=== PATIENT | female | born 1960 | race Two or more races ===

== ENCOUNTER 2020-10-10 15:50 | Outpatient (REF) | payer MEDICAID, SELFPAY ==
--- NOTE | ~2020-10-10 | MM_ITS ---
EXAMINATION: MM SCREENING DIGITAL BREAST TOMOSYNTHESIS, BILATERAL CLINICAL INFORMATION: Screening. Asymptomatic. The lifetime risk of breast cancer based on the Tyrer-Cuzick Model is 3%. COMPARISON: Mammography: 05/21/2019, 05/07/2019, 04/18/2018, 03/08/2017 TECHNIQUE: Digital breast tomosynthesis is performed in both the craniocaudal and mediolateral oblique views along with computer-aided detection (CAD). Synthesized 2D images are generated from the tomosynthesis. FINDINGS: There are scattered areas of fibroglandular density (ACR BI-RADS breast composition Category b). There are no significant masses, abnormal calcifications, or other abnormalities. Parenchymal pattern is similar to prior studies. No developing density. The axilla and skin contours are unremarkable. MM/MM tomosynthesis screening BI IMPRESSION: No mammographic evidence of malignancy. ASSESSMENT: BI-RADS 1: Negative RECOMMENDATION: Routine annual mammography screening. This patient's information was entered into a reminder system with a target due date for their next mammogram.
== END 2020-10-10 15:51 | disposition home or self-care (01) ==
LOC: HO.MAMMO 15:50
PROVIDERS: Visit Provider Family Medicine
DX: Z12.31 Encounter for screening mammogram for malignant neoplasm of breast (principal)
CPT/HCPCS: 77063; 77067

== ENCOUNTER 2021-10-14 09:53 | Outpatient (REF) | payer MEDICAID, SELFPAY ==
--- NOTE | ~2021-10-14 | MM_ITS ---
EXAMINATION: MM SCREENING DIGITAL BREAST TOMOSYNTHESIS, BILATERAL CLINICAL INFORMATION: Screening. Asymptomatic. The lifetime risk of breast cancer based on the Tyrer-Cuzick Model is 6%. COMPARISON: Mammography: 10/10/2020, 05/21/2019, 05/07/2019, 04/18/2018 TECHNIQUE: Digital breast tomosynthesis is performed in both the craniocaudal and mediolateral oblique views along with computer-aided detection (CAD). Synthesized 2D images are generated from the tomosynthesis. FINDINGS: There are scattered areas of fibroglandular density (ACR BI-RADS breast composition Category b). There are scattered bilateral parenchymal asymmetries similar to prior studies. No developing density or interval architectural abnormality. No abnormal calcifications. The axilla and skin contours are unremarkable. No significant changes from prior studies. MM/MM tomosynthesis screening BI IMPRESSION: No mammographic evidence of malignancy. ASSESSMENT: BI-RADS 2: Benign RECOMMENDATION: Routine annual mammography screening. This patient's information was entered into a reminder system with a target due date for their next mammogram.
== END 2021-10-14 09:54 | disposition home or self-care (01) ==
LOC: HO.MAMMO 09:53
PROVIDERS: PCP Family Medicine; Visit Provider Family Medicine
DX: Z12.31 Encounter for screening mammogram for malignant neoplasm of breast (principal)
CPT/HCPCS: 77063; 77067

== ENCOUNTER 2022-10-28 10:04 | Outpatient (REF) | payer MEDICAID, SELFPAY ==
--- NOTE | ~2022-10-28 | MM_ITS ---
EXAMINATION: MM SCREENING DIGITAL BREAST TOMOSYNTHESIS, BILATERAL CLINICAL INFORMATION: Screening. Asymptomatic. The lifetime risk of breast cancer based on the Tyrer-Cuzick Model is 4%. COMPARISON: Mammography: 10/14/2021, 10/10/2020, 05/21/2019, 05/07/2019 TECHNIQUE: Digital breast tomosynthesis is performed in both the craniocaudal and mediolateral oblique views along with computer-aided detection (CAD). Synthesized 2D images are generated from the tomosynthesis. FINDINGS: There are scattered areas of fibroglandular density (ACR BI-RADS breast composition Category b). There are no significant masses, abnormal calcifications, or other abnormalities. There are scattered stable minor bilateral asymmetries. No developing density or architectural abnormality or significant changes from prior exams. The axilla and skin contours are unremarkable. MM/MM tomosynthesis screening BI IMPRESSION: No mammographic evidence of malignancy. ASSESSMENT: BI-RADS 2: Benign RECOMMENDATION: Routine annual mammography screening. This patient's information was entered into a reminder system with a target due date for their next mammogram.
== END 2022-10-28 10:05 | disposition home or self-care (01) ==
LOC: HO.MAMMO 10:04
PROVIDERS: Visit Provider Family Medicine
DX: Z12.31 Encounter for screening mammogram for malignant neoplasm of breast (principal)
CPT/HCPCS: 77063; 77067

== ENCOUNTER 2023-02-16 08:52 | Outpatient (REF) | payer MEDICAID, SELFPAY ==
[2023-02-16 14:48] LABS: Alanine Aminotransferase 9 U/L (0-31); Albumin Level 4.2 g/dL (3.5-5.0); Alkaline Phosphatase 79 U/L (39-117); Anion Gap 13 (12-20); Aspartate Amino Transferase 16 U/L (5-31); Bilirubin Total 0.4 mg/dL (0.0-1.0); Blood Urea Nitrogen 16 mg/dL (9-16); Calcium 9.4 mg/dL (8.4-10.2); Carbon Dioxide 24 mmol/L (22-29); Chloride 106 mmol/L (96-108); Cholesterol 216 mg/dL (<200); Estimated Glomerular Filt Rate > 60; Glucose Fasting 80 mg/dL (60-99); HDL Cholesterol 57 mg/dL (>40); LDL Cholesterol Calculated 142 mg/dL (<100); Potassium 3.8 mmol/L (3.3-5.1); Sodium 139 mmol/L (135-145); Total Protein 7.3 g/dL (6.5-8.0); Triglycerides 88 mg/dL (<150)
[2023-02-16 15:05] LABS: TSH reflex Free T4 2.95 uIU/mL (0.32-4.0)
[2023-02-17 08:36] LABS: HIV AB/AG Nonreactive (Nonreactive); HIV Num 1 0.05 S/CO (0.00-0.99); ~HepC Num1 0.06 S/CO (0.00-0.79); ~Hepatitis C Antibody Nonreactive (Nonreactive)
== END 2023-02-16 08:53 | disposition home or self-care (01) ==
LOC: HO.CHCLDS 08:52
PROVIDERS: Visit Provider Family Medicine
DX: Z13.9 Encounter for screening, unspecified (principal)
CPT/HCPCS: 36415; 80053; 80061; 84443; 86803; 87389

== ENCOUNTER 2023-08-19 10:49 | Outpatient (REF) | payer MEDICAID, SELFPAY ==
--- NOTE | ~2023-08-19 | XR_ITS ---
EXAMINATION: XR KNEE, RIGHT CLINICAL INFORMATION: Chronic pain right knee COMPARISON: None available. TECHNIQUE: 3 views of the right knee. FINDINGS: No fracture or joint effusion. Alignment is anatomic. Joint spaces are maintained. No abnormal soft tissue calcification. XR/XR knee RT 3V IMPRESSION: Normal right knee.
--- NOTE | ~2023-08-19 | XR_ITS ---
EXAMINATION: XR HAND, LEFT CLINICAL INFORMATION: Chronic hand pain COMPARISON: None available. TECHNIQUE: PA, lateral, and oblique views of the left hand. FINDINGS: Interphalangeal joints: Mild osteoarthritis of the second DIP joint manifested by small marginal osteophytes without joint space narrowing. Fifth DIP joint: Mild to moderate osteoarthritis manifested by nonuniform joint space narrowing and marginal osteophytes. The remaining bones joints and soft tissues are normal. No marginal erosions or abnormal soft tissue calcifications. XR/XR hand LT min 3V IMPRESSION: 1. 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 2. Mild osteoarthritis of the second DIP joint.
== END 2023-08-19 10:50 | disposition home or self-care (01) ==
LOC: HO.XRAY 10:49
PROVIDERS: PCP Family Medicine; Visit Provider Family Medicine
DX: M79.642 Pain in left hand (principal); M25.561 Pain in right knee; G89.29 Other chronic pain
CPT/HCPCS: 73130; 73562

== ENCOUNTER 2023-11-03 09:52 | Outpatient (REF) | payer MEDICAID, SELFPAY | END 2023-11-03 09:53 | disposition home or self-care (01) | LOC: HO.MAMMO 09:52 | PROVIDERS: PCP Family Medicine; Visit Provider Family Medicine | DX: Z12.31 Encounter for screening mammogram for malignant neoplasm of breast (principal) | CPT/HCPCS: 77063; 77067 ==

== ENCOUNTER → 2023-11-03 11:00 | Outpatient (BNV) | payer MEDICAID, SELFPAY | PROVIDERS: PCP Family Medicine; Visit Provider Radiology Diagnostic Radiology | DX: Z12.31 Encounter for screening mammogram for malignant neoplasm of breast (principal) | CPT/HCPCS: 77063; 77067 ==

== ENCOUNTER 2024-03-22 10:08 | Outpatient (REF) | payer MEDICAID, SELFPAY ==
[2024-03-22 11:21] LABS: MANUAL DIFF FLAG NO
[2024-03-22 11:32] LABS: Basophils Absolute Auto 0.1 X10*3/uL (0.0-0.2); Basophils Percent Auto 1.2 % (0-2); Eosinophils Absolute Auto 0.3 X10*3/uL (0.0-0.4); Eosinophils Percent Auto 6.8 % (0-4); Hematocrit 38.4 % (37.0-47.0); Hemoglobin 12.7 g/dl (12.0-16.0); Imm Gran Abs Auto 0.01 X10*3/uL (0.00-0.03); Imm Gran Pct Auto 0.2 % (0.0-0.4); Lymphocytes Absolute Auto 1.3 X10*3/uL (1.2-4.9); Lymphocytes Percent Auto 29.3 % (20-40); Mean Corpuscular HGB Conc 33.1 g/dl (31.0-35.0); Mean Corpuscular Hemoglobin 31.1 pg (27.0-33.0); Mean Corpuscular Volume 93.9 fL (80.0-98.0); Mean Platelet Volume 12.3 fL (9.4-12.3); Monocytes Absolute Auto 0.4 X10*3/uL (0.1-1.2); Monocytes Percent Auto 8.9 % (2-11); Neutrophils Absolute Auto 2.3 x10*3/uL (2.0-8.3); Neutrophils Percent Auto 53.6 % (45-73); Platelet Count 170 X10*3/uL (160-400); Red Blood Count 4.09 X10*6/uL (4.20-5.50); White Blood Count 4.3 X10*3/uL (4.8-10.8)
[2024-03-22 11:52] LABS: Alanine Aminotransferase 17 U/L (0-31); Alkaline Phosphatase 79 U/L (39-117); Anion Gap 11 (12-20); Aspartate Amino Transferase 25 U/L (5-31); Bilirubin Total 0.2 mg/dL (0.0-1.0); Blood Urea Nitrogen 17 mg/dL (9-16); Calcium 9.3 mg/dL (8.4-10.2); Carbon Dioxide 25 mmol/L (22-29); Chloride 109 mmol/L (96-108); Cholesterol 196 mg/dL (<200); Estimated Glomerular Filt Rate > 60; Glucose Random 97 mg/dL (60-115); HDL Cholesterol 56 mg/dL (>40); LDL Cholesterol Calculated 130 mg/dL (<100); Potassium 4.1 mmol/L (3.3-5.1); Sodium 141 mmol/L (135-145); Triglycerides 54 mg/dL (<150)
== END 2024-03-22 10:09 | disposition home or self-care (01) ==
LOC: HO.HHCL 10:08
PROVIDERS: Visit Provider Family Medicine
DX: Z00.00 Encounter for general adult medical examination without abnormal findings (principal)
CPT/HCPCS: 36415; 80053; 80061; 85025

== ENCOUNTER 2024-11-08 10:30 | Outpatient (REF) | payer MEDICAID, SELFPAY ==
--- OUTSIDE RECORDS SUMMARY | 2024-11-08 12:18 | XMS_ITS | Encounter Summary ---
Author Organization [employer] Address [address] [place] [address] Care Team Providers Care Builder Operator Name Role Phone Jolly Randolph MD Primary Care Provider [phone] Reason for Visit * Reason Onset Date Comments Appointment Request 04/16/2024 Encounter Details Date Type Department Care Team ([facility] st Contact Info) Description 04/16/2024 Telephone [facility] CH[facility] MED & PEDS [address] [place] [address] Jolly Randolph MD [address] [place] [address] Appointment Request Social History Tobacco Use Types Packs/Day Years Used Date Smoking Tobacco: Never Passive Smoke Exposure: Never Smokeless Tobacco: Never Alcohol Use Standard Drinks/Week Comments Never 0 (1 standard drink = 0.6 oz pur e alcohol) Alcohol Answer Date Recorded Frequency of Alcohol Consumption Not on file 03/19/2024 Average Number of Drinks Not on file 024 Frequency of Binge Drinking Not on file 08/2023 Score 0 03/19/2024 Depression Answer Date Recorded Patient Health Questionnaire-9 Score 0 03/19/2024 Patient Health Questionnaire-9 Score 0 03/19/2024 Last PHQ-9: Questionnaire Data Not on file 1 05/19/2023 Housing Stability Answer Date Recorded What is your housing situation today? I have nola platt 02/28/[address] you li ve. Do you have problems with any of the following? None of the above 02/28/2023 Food Insecurity Answer Date Recorded Within the past 12 months, y ou worried that your food would run out before you got money to buy more: Never True 02/28/2023 Within the past 12 months,th e food you bought just didn't last and you didn't have enough money to get more: Never True Transportation Answer Date Recorded In the past 12 months, has l ack of transportation kept you from medical appts, meetings, work or from getting things needed for daily living? No 02/28/2023 Utilities Answer Date Recorded In the past 12 months, has t he electric, gas, oil or water company threatened to shut off services in your home? No 02/28/2023 Depression Answer Date Recorded Patient Health Questionnaire-2 Score 0 03/19/2024 Comments No Sex and Gender Information Value Date Recorded Sex Assigned at Female 03/15/2022 10:19 AM EDT Legal Sex Female 10:19 AM EDT Gender Identity Female 03/15/2022 10:19 AM EDT Sexual Orientation Straight 02/01/2023 12 :27 PM EDT documented as of this encounter Miscellaneous Notes * Telephone Encounter - Muna Bryant - 04/16/2024 2:11 PM EST Tc from pt requesting to r/s derm appt 04/17/24. States does not feel Comfortable being seen by a male doctor and would like to switch over to a female does not mind either location . If any questions you can't contact pt at [phone] documented in this encounter Plan of Treatment Not on file documented as of this encounter Visit Diagnoses Not on filedocumented in this encounter Additional Health Concerns Assessment Noted Time PHQ-9 Depression Total Score: 0 03/19/20 10:21 AM EST documented as of this encounter Care Teams Builder Operator Relationship Specialty Start Date End Date Jolly Randolph MD [address] [place] [address] PCP - General Family Medicine 02/15/23 documented as of this encounter
== END 2024-11-08 10:31 | disposition home or self-care (01) ==
LOC: HO.MAMMO 10:30
PROVIDERS: PCP Family Medicine; Visit Provider Family Medicine
DX: Z12.31 Encounter for screening mammogram for malignant neoplasm of breast (principal)
CPT/HCPCS: 77063; 77067

== ENCOUNTER → 2024-11-08 10:45 | Outpatient (BNV) | payer MEDICAID, SELFPAY | PROVIDERS: PCP Family Medicine; Visit Provider Internal Medicine | DX: Z12.31 Encounter for screening mammogram for malignant neoplasm of breast (principal) | CPT/HCPCS: 77063; 77067 ==

== ENCOUNTER 2025-03-15 11:09 | Outpatient (AMB) | payer MEDICAID, SELFPAY ==
--- NOTE | 2025-03-15 11:18 | AM.OFFWIN_ITS ---
Intake Vital Signs 03/15/25 11:21 Height 5 ft 2.8 in Weight 115 lb BMI 20.5 BP 136/74 Blood Pressure Location Lt brachial Position Sitting Pulse 71 Pulse Source Pulse Oximeter Temp 97.7 F Temp Source Oral Pulse Oximetry (%) 98 Oxygen Delivery Method Room Air Intake Visit Reasons: SUPERVISOR PROPERTIES-uti Allergies aspirin Adverse Reaction (Intermediate, Verified 03/15/25 11:28) Eye Swelling ibuprofen (From [facility]VIL) Adverse Reaction (Intermediate, Verified 03/15/25 11:28) Eye Swelling Do you need a note to return to daycare/school/sports/work: No HPI HPI Comments History of Present Illness Details History - The patient is a 65-year-old female pr esenting with symptoms suggestive of a urinary tract infection. - The patient reported noticing reddish discoloration in her urine starting the day before the visit, suspecting an infection. - She denied experiencing dysuria, abdom inal pain, back pain, fever, increased urinary frequency, or urinary retention. - Urinalysis indicated the presence of b lood and a small amount of white blood cells, but no history of kidney stones was reported. Review of Systems - Genitourinary: Reports hematuria. Ashok es dysuria, abdominal pain, back pain, fever, increased urinary frequency, or urinary retention. All systems reviewed and are unremarkable except as noted in HPI Physical Exam General: Cooperative, healthy appearing, comfortable, no acute distress and well developed Orientation: Patient oriented x3 Limitations: No limitations Head: Normal to inspection Ears: Hearing grossly normal bilaterally Face and sinus: Normal facial exam Neck: Normal visual inspection and Yes full ROM Respiratory: Normal respiratory effort and able to speak in complete sentences. Skin: No rashes or lesions noted Neuro: Patient oriented x3 Back/spine: negative CVA bilaterally Physical Exam Vital Signs: Last Vital Signs Temp 97.7 F 03/15/25 11:21 Pulse 71 03/15/25 11:21 BP 136/74 03/15/25 11:21 Pulse Ox 98 03/15/25 11:21 Oxygen Delivery Method Room Air 03/15/25 11:21 BMI result Body Mass Index 20.5 Results AMB Urinalysis, Automated UA Leukoctes 15 Jessy/uL Last Edit by Angela Alvarenga CMA on 03/15/25 11:31 UA Nitrite Negative Last Edit by Angela Alvarenga CMA on 03/15/25 11:31 UA Urobilinogen 0.2 mg/dL Last Edit by Angela Alvarenga, JOSUÉ on 03/15/25 11:31 UA Protein 30 mg/dL Last Edit by Angela Alvarenga, JOSUÉ on 03/15/25 11:31 UA pH 6.0 Last Edit by Angela Alvarenga, JOSUÉ on 03/15/25 11:31 UA Blood 200 Martin/uL Last Edit by Angela Alvarenga, JOSUÉ on 03/15/25 11:31 UA Specific [place] 1.025 Last Edit by Angela Alvarenga, CUSTOMER EXPERIENCE SPECIALIST on 03/15/25 11:31 UA Ketone Negative Last Edit by Angela Alvarenga, JOSUÉ on 03/15/25 11:31 UA Bilirubin 0 mg/dL Last Edit by Angela Alvarenga, CUSTOMER EXPERIENCE SPECIALIST on 03/15/25 11:31 UA Glucose 0 mg/dL Last Edit by Angela Alvarenga, JOSUÉ on 03/15/25 11:31 Results Reviewed Results Reviewed: Laboratory Last Values Urine pH (Auto) 6.0 03/15/25 11:14 Specific [place] (Auto) 1.025 03/15/25 11:14 Urine Protein (Auto) 30 mg/dL 03/15/25 11:14 Glucose (UA)(Auto) 0 mg/dL 03/15/25 11:14 Urine Ketones (Auto) Negative 03/15/25 11:14 Urine Blood (Auto) 200 Martin/uL 03/15/25 11:14 Urine Nitrite (Auto) Negative 03/15/25 11:14 Urine Bilirubin (Auto) 0 mg/dL 03/15/25 11:14 Urine Urobilinogen (Auto) 0.2 mg/dL 03/15/25 11:14 Leukocyte Esterase (Auto) 15 Jessy/uL 03/15/25 11:14 Assessment & Plan Assessment & Plan (1) UTI (urinary tract infection): Code(s): N39.0 - Urinary tract infection, site not specified Qualifiers: Hematuria presence: with hematuria Urinary tract infection type: acute cystitis Qualified Code(s): N30.01 - Acute cystitis with hematuria Plan: Plan - UA with leuks, blood and protein, neg nitrites. Will treat based on symptoms. - Initiate antibiotic therapy for suspected urinary tract infection, to be taken every 12 hours for five days. - Send urine culture to confirm infection; discontinue antibiotics if culture is negative and follow up with primary care physician for further evaluation of hematuria. - Advise follow-up with primary care physician to investigate the cause of hematuria if no infection is confirmed. Patient was informed and verbally consented to the use of an ambient scribe for clinic note documentation during this visit. Orders: Orders AMB Urinalysis Automated Today Z13.9 - Encounter for screening, unspecified Urine Culture Today N39.0 - Urinary tract infection, site not specified Medications: New cefuroxime axetil 500 mg PO Q12H 10 tabs 0RF Coding Level of Care Code New Pt Level 3 (13088) Diagnoses Acute cystitis with hematuria N30.01 Hematuria presence: with hematuria Urinary tract infection type: acute cystitis
[2025-03-15 11:21] VITALS: BP 136/74; PULSE 71; TEMP 36.5; O2SAT 98; BMI 20.5
--- OUTSIDE RECORDS SUMMARY | 2025-03-15 12:42 | XMS_ITS | Encounter Summary ---
Author Organization [employer] Address [address] [place] [address] Care Team Providers Care Supervisor Twisting Department Name Role Phone Jolly Randolph MD Primary Care Provider [phone] Reason for Visit * Reason Onset Date Comments Change 04/16/2024 Encounter Details Date Type Department Care Team (Late st Contact Info) Description 04/16/2024 Telephone [facility] MEDICINE [address] [place], [place] [phone] Jloly Randolph MD [address] [place] [address] Change Social History Tobacco Use Types Packs/Day Years [...] encounter Miscellaneous Notes * Telephone Encounter - Jose A Pepe - 04/16/2024 10:38 AM EST Tc from pt requesting to change the Doctor for appt 04/17. Pt states would feel more Comfortable with Female doctor. If any questions you can't contact pt at [phone] documented in this encounter Plan of Treatment Upcoming Encounters Date Type Department Care Team (Late st Contact Info) Description 03/28/2025 10:00 AM EST Office Visit [facility] MED & PEDS [address] [place] [address] Jolly Randolph MD [address] [place] [address] documented as of this encounter Visit Diagnoses Not on filedocumented in this encounter Additional Health Concerns Assessment Noted Time PHQ-9 Depression Total Score: 0 03/19/20 10:21 AM EST documented as of this encounter Care Teams Supervisor Twisting Department Relationship Specialty Start Date End Date Jolly Randolph MD [address] [place] [address] PCP - General Family Medicine 02/15/23 documented as of this encounter
--- OUTSIDE RECORDS SUMMARY | 2025-03-15 12:42 | XMS_ITS | Encounter Summary ---
Author Organization [employer] Address [address] [facility] [address] [place] [address] Care Team Providers Care Mechanical Engineering Teacher Name Role Phone Jolly Randolph MD Primary Care Provider [phone] Reason for Visit * Reason Onset Date Comments Appointment Request 04/16/2024 Encounter Details Date Type Department Care Team ([facility] Contact Info) Description 04/16/2024 Telephone [facility] CHC MED & PEDS [address] [place] [address] Jolly Randolph MD [address] [place] [address] Appointment Request Social History Tobacco Use Types [...] any questions you can't contact pt at [phone] documented in this encounter Plan of Treatment Upcoming Encounters Date Type Department Care Team (Late st Contact Info) Description 03/28/2025 10:00 AM EST Office Visit [facility] CHC MED & PEDS [address] [place] [address] Jolly Randolph MD [address] [place] [address] documented as of this encounter Visit Diagnoses Not on filedocumented in this encounter Additional Health Concerns Assessment Noted Time PHQ-9 Depression Total Score: 0 03/19/20 10:21 AM EST documented as of this encounter Care Teams Mechanical Engineering Teacher Relationship Specialty Start Date End Date Jolly Randolph MD [address] [place] [address] PCP - General Family Medicine 02/15/23 documented as of this encounter
--- OUTSIDE RECORDS SUMMARY | 2025-03-15 12:42 | XMS_ITS | Clinical Summary ---
Author Organization [employer] Address [address] [facility] [address] [place] [address] Care Team Providers Care Station Engineer Chief Name Role Phone Jolly Randolph MD Primary Care Provider Allergies Active Allergy Reactions Criticality Noted Date Comments Aspirin 08/14/2013 Ibuprofen 12/18/2013 Medications Diclofenac Sodium 1 % gel Apply 5 g topically 4 times daily. 200 g 4 Active acetaminophen (Tylenol Extra Strength) 500 MG tablet Take 2 tablets (1,000 mg) by mouth every 8 (eight) hours if needed for mild pain. 90 tablet 4 Active clobetasol (Temovate) 0.05 % ointmentIndicat ions:Lichen sclerosus of vulva Use as directed in the evening. Apply to affected area 30 g 5 Active tacrolimus (Protopic) 0.1 % ointmentIndicat ions:Lichen sclerosus of vulva Apply topically 2 times daily. 60 g 3 5 06/19/19 26 Active Active Problems Problem Noted Date Diagnosed Date Annual physical exam 03/19/2024 Assessment & Plan (03/19/2024 11:19 AM EST): Pt declined influenza vaccine, pneumonia, and shingles. Ordering lab work for further evaluation. Weight is WNL. Prescribing Debrox for ear cleaning. Relevant Medication Carbamide Peroxide (Debrox) 6.5% Otic Solution Osteoarthritis of left hand 08/18/2023 Assessment & Plan (08/19/2023 2:16 AM EDT): Discussed physical therapy and steroid injection for pain but patient declined treatments. - Ordered XR hand Chronic pain of right knee 08/18/2023 Assessment & Plan (08/19/2023 2:17 AM EDT): - Ordered XR Right knee Lichen sclerosus of vulva 02/15/2023 Localized scleroderma 03/21/2014 Resolved Problems Problem Noted Date Diagnosed Date Resolved Date Vaginal itching 02/15/2023 03/19/2024 Assessment & Plan (02/15/2023 6:04 PM EDT): After chart review after visit was able to see she has a prior dx of lichen sclerous. I have scheduled appt with CNM for assessment. She decline pap smear. Colon cancer screening 02/15/202303/19 Assessment & Plan (02/15/2023 6:04 PM EDT): Will send screening cologuard Immunizations Immunization Administration Dates Next Due Tdap 10/15/2016 Family History Medical History Relation Name Comments Diabetes Mother Hypertension Mother Relation Name Status Comments Father Mother Social History Tobacco Use Types Packs/Day Years Used Date Smoking Tobacco: Never Passive Smoke Exposure: Never Smokeless Tobacco: Never Tobacco Cessation:Counseling Given: Not Answered Alcohol Use Standard Drinks/Week Comments Never 0 [...] is your housing situation today? I have nolakate platt 02/28/[address] you [...] Orientation Straight 02/01/2023 12 :27 PM EDT Last Filed Vital Signs Vital Sign Reading Time Taken Comments Blood Pressure 140/82 06/19/2024 10:39 AM EST Pulse 78 06/19/2024 10:39 AM EST Temperature 36.9 C (98.4 F) 06/19/2024 10:39 AM EST Respiratory Rate 20 06/19/2024 10:39 AM EST Oxygen Saturation 98% 06/19/2024 10:39 AM EST Inhaled Oxygen Concentration - - Weight 51.9 kg (114 lb 6.4 oz) 06/19/2024 10:39 AM EST Height 157.5 cm (5' 2 ) 06/19/2024 10:39 AM EST Body Mass Index 20.92 06/19/2024 10:39 AM EST Plan of Treatment Upcoming Encounters Date Type Department Care Team (Late st Contact Info) Description 03/28/2025 10:00 AM EST Office Visit [facility] [address] [place] [address] Jolly Randolph MD [address] [place] [address] Health Maintenance Due Date Last Done Comments CT Colonography 1960 Colonoscopy 1960 FIT 1960 Sigmoidoscopy 1960 Dental X-Ray: Bitewings 03/10/2014 03/09/2013, 11/21 Dental X-Ray: Full Mouth 03/10/2016 03/09/2013, 01/2013 Dental Oral Exam 04/22/2016 10/21/2015, 10/2014, 03/09/2013, Additional history exists Dental Prophylaxis 04/07/2017 10/04/2016, 1 05/30/2015, 09/25/2015, Additional history exists FOBT 2024 2023 SDOH Screening 08/08/2024 08/09/2023 COVID-19 Vaccine (3 - season) 2025 10/02/2020, 09/04/2020 Influenza Vaccine (#1) 2025 Alcohol/Substance Use Screening 03/19/2025 03/19/2024 Depression Screening 03/19/2025 03/19/2024, 03/19/20 24 Pneumococcal Vaccine: 50+ Years (1 of 1 - PCV) 03/19/2025 Postponed from 2008 (Patient Refused) Zoster Vaccines (1 of 2) 03/19/2025 Pos tponed from 2008 (Patient Refused) Tobacco Screening 06/19/2025 06/19/2024 Mammogram 11/08/2025 11/08/2024, 06/, 10/28/2022, Additional history exists Colorectal Cancer Screening 2026 FIT DNA/Cologuard 2026 2023 DTaP/Tdap/Td Vaccines (2 - Td or Tdap) 10/15/2026 10/15/2016 RSV Patients and Patients Aged 60 years or older (1 - 1-dose 75+ series) 2033 Hepatitis C Screening Completed 02/16/2023 HIB Vaccines Aged Out No longer eligi ble based on patient's age to complete this topic HPV Vaccines Aged Out No longer eligi ble based on patient's age to complete this topic Hepatitis A Vaccines Aged Out No long er eligible based on patient's age to complete this topic Hepatitis B Vaccines Aged Out No long er eligible based on patient's age to complete this topic IPV Vaccines Aged Out No longer eligi ble based on patient's age to complete this topic Meningococcal B Vaccine Aged Out No l onger eligible based on patient's age to complete this topic Meningococcal Vaccine Aged Out No cleve yanelis eligible based on patient's age to complete this topic RSV under 20 months Aged Out No longe r eligible based on patient's age to complete this topic Rotavirus Vaccines Aged Out No longer eligible based on patient's age to complete this topic Procedures Procedure Name Priority Date/Time Associated Diagnosis Comments BI MAMMOGRAM SCREENING TOMOSYNTHESIS BILATERAL Routine 11/08/2024 10:35 AM EDT LAB COLOGUARD COLON CANCER SCREEN Routine 2023 2:13 PM EDT Colon cancer screening HEPATITIS C ANTIBODY Routine 02/16/2023 8:56 AM EDT Encounter for health-related screening PROPHYLAXIS - ADULT Routine 10/04/2016 1 2:00 AM EDT PERIODIC ORAL EVALUATION - ESTABLISHED PATIENT Routine 10/21/2015 12:00 AM EDT INTRAORAL - COMPLETE SERIES OF RADIOGRAPHIC IMAGES Routine 03/09/2013 12:00 AM EDT from Last 3 Months or Most Recently Relevant to Health Maintenance Results * BI Mammogram Screening Tomosynthesis Bilateral (11/08/2024 10:35 AM EDT) Anatomical Region Laterality Modality Breast Bilateral Mammography 11/08/2024 10:3 5 AM EDT Narrative 11/24/2024 4:06 PM EDT [facility] [address] [place] [place] [address] Mammography Report Signed Patient: Dilcia Evans MR#: [id number] : 1960 Acct:[id number] Age/Sex: 64 / F ADM Date: 11/08/24 Loc: HO.MAMMO Attending Dr: Jolly Randolph MD Ordering Physician: Jolly Randolph MD Results: 1Nega tive Date of Service: 11/08/24 Follow Up: 1 Year From [facility]a Mammogram Procedure(s): MM tomosynthesis screening BI Accession Number(s): [id number] cc: Jolly Randolph MD EXAMINATION: MM SCREENING DIGITAL BREAST TOMOSYNTHESIS, BILATERAL CLINICAL INFORMATION: Screening. Asymptomatic. COMPARISON: Mammography: Comparison is made with available priors TECHNIQUE: Digital breast mammography with tomosynthesis is performed in both the craniocaudal and mediolateral oblique views along with computer-aided detection (CAD). FINDINGS: The breasts are heterogeneously dense, which may obscure small masses (ACR BI-RADS breast composition Category c). There are no significant masses, abnormal calcifications, or other abnormalities. MM/MM tomosynthesis screening BI IMPRESSION: No mammographic evidence of malignancy. ASSESSMENT: BI-RADS BI-RADS 1 - Negative RECOMMENDATION: Routine annual mammography screening. 1 year F/U This examination should not preclude the clinical evaluation of a suspicious palpable abnormality. This patient's information was entered into a reminder system with a target due date for their next mammogram. Electronically signed by: Dimple Alvarado DO 11/24/2024 04:03 PM EDT RP Dictated By: Dimple Alvarado DO Signed By: <Electronically signed by Dimple Alvarado DO in OV> 11/24/24 1603 DD/ 1035 TD/TT: 11/08/24 1055 Physics Tutor: Procedure Note Donotuseinterpreter, Image - 11/24/2024 [facility] [address] [place] [place] [address] Mammography Report Signed Patient: Tim Evans#: [id number] : 8Acct:[id number] Age/Sex: 64 / FADM Date: 11/08/24 Loc: .MAMMO Attending Dr: Jolly Randloph MD Ordering Physician: Jolly Randolph MDResults: 1Nega tive Date of Service: 11/08/24Follow Up: 1 Year From Orig inal Mammogram Procedure(s): MM tomosynthesis screening BI Accession Number(s): [id number] cc: Jolly Randolph MD EXAMINATION: MM SCREENING DIGITAL BREAST TOMOSYNTHESIS, BILATERAL CLINICAL INFORMATION: Screening. Asymptomatic. COMPARISON: Mammography: Comparison is made with available priors TECHNIQUE: Digital breast mammography with tomosynthesis is performed in both the craniocaudal and mediolateral oblique views along with computer-aided detection (CAD). FINDINGS: The breasts are heterogeneously dense, which may obscure small masses (ACR BI-RADS breast composition Category c). There are no significant masses, abnormal calcifications, or other abnormalities. MM/MM tomosynthesis screening BI IMPRESSION: No mammographic evidence of malignancy. ASSESSMENT: BI-RADS BI-RADS 1 - Negative RECOMMENDATION: Routine annual mammography screening. 1 year F/U This examination should not preclude the clinical evaluation of a suspicious palpable abnormality. This patient's information was entered into a reminder system with a target due date for their next mammogram. Electronically signed by: Dimple Alvarado DO 11/24/2024 04:03 PM EDT RP Dictated By: Dimple Alvarado DO Signed By: <Electronically signed by Dimple Alvarado DO in OV> 11/24/24 1603 DD/ 1035 TD/TT: 11/08/24 1055 Physics Tutor: us Jolly Randolph MD [place] BI PROCEDURES Edited Resu lt - Final * Cologuard?? colon cancer screening (2023 2:13 PM EDT) Cologuard Result Negative Negative 03/07/20 11:07 AM EDT [facility] (CLIA #:[id number]) Comment: NEGATIVE TEST RESULT. A negative Cologuard result indicates a low likelihood that a colorectal cancer (CRC) or advanced adenoma (adenomatous polyps with more advanced pre-malignant features) is present. The chance that a person with a negative Cologuard test has a colorectal cancer is less than 1 in 1500 (negative predictive value >99.9%) or has an advanced adenoma is less than 5.3% (negative predictive value 94.7%). These data are based on a prospective cross-sectional study of 10,000 individuals at average risk for colorectal cancer who were screened with both Cologuard and colonoscopy. (Conchis Garcia al, N Engl J Med 2014;370(14):4786-9653) The normal value (reference range) for this assay is negative. COLOGUARD RE-SCREENING RECOMMENDATION: Periodic colorectal cancer screening is an important part of preventive healthcare for asymptomatic individuals at average risk for colorectal cancer. Following a negative Cologuard result, the [place] Cancer Society and U.S. Multi-Society Task Force screening guidelines recommend a Cologuard re-screening interval of 3 years. References: [place] [employer] Society Guideline for Colorectal Cancer Screening: https://www.cancer.org/cancer/kljzc-nnphor-yllvdz/jvxhqqyty-unflthinw-rirjhpc/ac s-rec ommendations.html.; Junior DK, Wayne RODRÍGUEZ, Gabbi LaytonK, Colorectal Cancer Screening: Recommendations for Physicians and Patients from the U.S. Multi-Society Task Force on Colorectal Cancer Screening , Am J Gastroenterology 2017; 112:4005-0980. TEST DESCRIPTION: Composite algorithmic analysis of stool DNA-biomarkers with hemoglobin immunoassay. Quantitative values of individual biomarkers are not reportable and are not associated with individual biomarker result reference ranges. Cologuard is intended for colorectal cancer screening of adults of either sex, 45 years or older, who are at average-risk for colorectal cancer (CRC). Cologuard has been approved for use by the U.S. FDA. The performance of Cologuard was established in a cross sectional study of average-risk adults aged 50-84. Cologuard performance in patients ages 45 to 49 years was estimated by sub-group analysis of near-age groups. Colonoscopies performed for a positive result may find as the most clinically significant lesion: colorectal cancer [4.0%], advanced adenoma (including sessile serrated polyps greater than or equal to 1cm diameter) [20%] or non- advanced adenoma [31%]; or no colorectal neoplasia [45%]. These estimates are derived from a prospective cross-sectional screening study of 10,000 individuals at average risk for colorectal cancer who were screened with both Cologuard and colonoscopy. (Conchis Garcia al, N Engl J Med 2014;370(14):9701-6572.) Cologuard may produce a false negative or false positive result (no colorectal cancer or precancerous polyp present at colonoscopy follow up). A negative Cologuard test result does not guarantee the absence of CRC or advanced adenoma (pre-cancer). The current Cologuard screening interval is every 3 years. ([place] Cancer Society and U.S. Multi-Society Task Force). Cologuard performance data in a 10,000 patient pivotal study using colonoscopy as the reference method can be accessed at the following location: www.[employer]/results. Additional description of the Cologuard test process, warnings and precautions can be found at www.colWisrrd.com. Stool specimen (specimen) 2023 2:13 PM EDT 03/02/2023 8:03 PM EDT us Jolly Randolph MD LAB MOLECULAR DIAGNOSTICS ORD ERABLES Final Result [facility] (CLIA #:[id number]) [place] [address], * Hepatitis C Ab (02/16/2023 8:56 AM EDT) Hepatitis C Antibody Nonreactive Nonreactive [facility] Comment:Antibodies to HCV no t detected; does not exclude early acuteHCV infection. Blood 02/16/2023 8:56 AM EDT 02/16/2023 2:10 PM EDT us Jolly Randolph MD LAB BLOOD ORDERABLES Final Re sult Performing Organization Address City/[facility]/ZIP Co de Phone Number [facility] [address] [place] [address] [phone] from Last 3 Months or Most Recently Relevant to Health Maintenance [facility] MEDICAID STAND ADULT * Guarantor: Dilcia Evans Account Type Relation to Patient Date of Phone Billing Address Personal/Family Self [address] [place] [phone] * Guarantor: Dilcia Evans Account Type Relation to Patient Date of Phone Billing Address Personal/Family Self [address] [place] [phone] * Guarantor: Dilcia Evans Account Type Relation to Patient Date of Phone Billing Address Personal/Family Self [address] [place] [address] Care Teams Station Engineer Chief Relationship Specialty Start Date End Date Jolly Randolph MD [address] [place] [phone] PCP - General Family Medicine 02/15/23
--- OUTSIDE RECORDS SUMMARY | 2025-03-15 12:42 | XMS_ITS | Encounter Summary ---
Author Organization [employer] Address [address] [place] [address] [address] [place] [address] Care Team Providers Care Hand Stamper Name Role Phone Jolly Randolph MD Primary Care Provider [phone] Reason for Visit * Reason Onset Date Comments New Patient Appt 12/24/2022 Encounter Details Date Type Department Care Team (Late st Contact Info) Description 12/24/2022 Telephone [facility] [address] [place], [place] [phone] Sam Domingo MD [address] [place], [place] [phone] New Patient Appt Social History Tobacco Use Types Packs/Day Years Used Date Smoking Tobacco: Never Assessed Comments Unknown Sex and Gender Information Value Date Recorded Sex Assigned at Female 03/15/2022 10:19 AM EDT Legal Sex Female 10:19 AM EDT Gender Identity Female 03/15/2022 10:19 AM EDT Sexual Orientation Straight 02/01/2023 12 :27 PM EDT documented as of this encounter Miscellaneous Notes * Telephone Encounter - Eliana More - 12/24/2022 10:22 AM EDT 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 EFFECTIVE SINCE 12/24/2022 documented in this encounter Plan of Treatment Upcoming Encounters Date Type Department Care Team (Late st Contact Info) Description 03/28/2025 10:00 AM EST Office Visit [facility] & PEDS [address] [place], [place] [phone] Jolly Randolph MD [address] [place], [place] [phone] documented as of this encounter Visit Diagnoses Not on filedocumented in this encounter Care Teams Hand Stamper Relationship Specialty Start Date End Date Jolly Randolph MD [address] [place] [address] PCP - General Family Medicine 02/15/23 documented as of this encounter
== END 2025-03-15 11:40 | disposition home or self-care (01) ==
PROVIDERS: PCP Family Medicine; Visit Provider Physician Assistant
DX: Z13.9 Encounter for screening, unspecified (principal); N30.01 Acute cystitis with hematuria

== ENCOUNTER 2025-03-15 11:09 | Outpatient (REF) | payer MEDICAID, SELFPAY | END 2025-03-15 11:10 | disposition home or self-care (01) | LOC: HO.LAB 11:09 | PROVIDERS: PCP Family Medicine; Visit Provider Physician Assistant | DX: N30.01 Acute cystitis with hematuria (principal); Z13.89 Encounter for screening for other disorder | CPT/HCPCS: 81003; 87086; 99202 ==

== ENCOUNTER 2025-03-29 08:58 | Outpatient (REF) | payer MEDICAID, SELFPAY ==
[2025-03-29 10:26] LABS: MANUAL DIFF FLAG NO
[2025-03-29 10:39] LABS: Hematocrit 38.0 % (37.0-47.0); Hemoglobin 12.7 g/dl (12.0-16.0); Imm Gran Abs Auto 0.02 X10*3/uL (0.00-0.03); Imm Gran Pct Auto 0.4 % (0.0-0.4); Lymphocytes Absolute Auto 1.5 X10*3/uL (1.2-4.9); Mean Corpuscular HGB Conc 33.4 g/dl (31.0-35.0); Mean Corpuscular Hemoglobin 31.1 pg (27.0-33.0); Mean Corpuscular Volume 93.1 fL (80.0-98.0); NRBC Abs Auto 0.000 X10*3/uL (0.0-0.012); NRBC Pct Auto 0.0 /100WBC (0.0-0.2); Platelet Count 182 X10*3/uL (160-400); Red Blood Count 4.08 X10*6/uL (4.20-5.50); White Blood Count 5.0 X10*3/uL (4.8-10.8)
[2025-03-29 11:14] LABS: Alanine Aminotransferase 17 U/L (0-31); Albumin Level 4.4 g/dL (3.5-5.0); Alkaline Phosphatase 75 U/L (39-117); Anion Gap 12 (12-20); Aspartate Amino Transferase 22 U/L (5-31); Blood Urea Nitrogen 21 mg/dL (9-16); Calcium 9.2 mg/dL (8.4-10.2); Carbon Dioxide 26 mmol/L (22-29); Chloride 108 mmol/L (96-108); Cholesterol 189 mg/dL (<200); Estimated Glomerular Filt Rate > 60; HDL Cholesterol 57 mg/dL (>40); Potassium 3.9 mmol/L (3.3-5.1); Sodium 142 mmol/L (135-145); Total Protein 7.2 g/dL (6.5-8.0); Triglycerides 64 mg/dL (<150)
== END 2025-03-29 08:59 | disposition home or self-care (01) ==
LOC: HO.HMGCLDS 08:58
PROVIDERS: PCP Family Medicine; Visit Provider Family Medicine
DX: Z00.00 Encounter for general adult medical examination without abnormal findings (principal)
CPT/HCPCS: 36415; 80053; 80061; 84443; 85025

== ENCOUNTER 2025-04-17 11:17 | Outpatient (REF) | payer MEDICAID, SELFPAY ==
--- OUTSIDE RECORDS SUMMARY | 2025-04-17 13:35 | XMS_ITS | Encounter Summary ---
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 EFFECTIVE SINCE 12/24/2022 documented in this encounter Plan of Treatment Not on file documented as of this encounter Visit Diagnoses Not on filedocumented in this encounter Care Teams Edge Trimmer Mechanic Relationship Specialty Start Date End Date Jolly Randolph MD [address] [place], [place] [phone] PCP - General Family Medicine 02/15/23 documented as of this encounter
--- OUTSIDE RECORDS SUMMARY | 2025-04-17 13:35 | XMS_ITS | Clinical Summary ---
Author Organization [employer] Address [address] [facility] 7t [place] [address] Care Team Providers Care Secretary Administrative Assistant Name Role Phone Jolly Randolph MD Primary Care Provider [phone] Allergies Active Allergy Reactions Criticality Noted Date Comments Aspirin 08/14/2013 Ibuprofen 12/18/2013 Medications Diclofenac Sodium 1 % gel Apply 5 g topically 4 times daily. 200 g 08/18/19 24 Active acetaminophen (Tylenol Extra Strength) 500 MG tablet Take 2 tablets (1,000 mg) by mouth every 8 (eight) hours if needed for mild pain. 90 tablet 08/18/19 24 Active clobetasol (Temovate) 0.05 % ointmentIndica tions:Lichen sclerosus of vulva Use as directed in the evening. Apply to affected area 30 g 2 03/28/20 25 Active tacrolimus (Protopic) 0.1 % ointmentIndica tions:Lichen sclerosus of vulva Apply topically 2 times daily. 60 g 3 03/28/20 25 026 Active clobetasol (Temovate) 0.05 % ointmentIndica tions:Lichen sclerosus of vulva Use as directed in the evening. Apply to affected area 30 g 06/19/19 25 025 Discontinued(Re order (will not trigger notification to Pharmacy)) tacrolimus (Protopic) 0.1 % ointmentIndica tions:Lichen sclerosus of vulva Apply topically 2 times daily. 60 g 3 06/19/19 25 025 Discontinued(Re order (will not trigger notification to Pharmacy)) Active Problems Problem Noted Date Diagnosed Date Hematuria 04/17/2025 Annual physical exam 03/19/2024 Assessment & Plan (03/28/2025 10:34 AM EST): 65 y.o. female here for annual physical examination Reviewed BMI and BP with patient. Nutritional recommendations: Recommended to decrease soda and sugary beverage consumption. Recommended at least 20 g per meal of protein to assist with satiety. Exercise recommendations: Recommended at least 150 min/week of moderate intensity exercise. screen done and reviewed Care Gaps reviewed IZ reviewed and discussed w/ patient Updated/reviewed PMH, Surghx, Family Hx & Social Hx Assessment & Plan (03/19/2024 11:19 AM EST): [...] 6:04 PM EDT): Will send screening cologuard Encounters Date Type Department Care Team Description 04/16/2025 Telephone [facility] [address] [place] [address] Jolly Randolph MD Nurse Triage 03/28/2025 10:00 AM EST Office Visit [facility] [address] [place] [address] Jolly Randolph MD Annual physical exam (Primary Dx); Lichen sclerosus of vulva 03/28/2025 Travel 03/21/2025 Patient Outreach [facility] [address] [place] [address] Jolly Randolph MD Pre-visit Planning (Pre visit planning LVM ) from Last 3 Months Immunizations Immunization Administration Dates Next Due Tdap [...] Sign Reading Time Taken Comments Blood Pressure 132/76 03/28/2025 9:48 AM EST Pulse 66 03/28/2025 9:48 AM EST Temperature 36.4 C (97.6 F) 03/28/2025 9:48 AM EST Respiratory Rate 18 03/28/2025 9:48 AM EST Oxygen Saturation 98% 03/28/2025 9:48 AM EST Inhaled Oxygen Concentration - - Weight 50.8 kg (112 lb) 03/28/2025 9:48 AM EST Height 157.5 cm (5' 2 ) 03/28/2025 9:48 AM EST Body Mass Index 20.49 03/28/2025 9:48 AM EST Plan of Treatment Health Maintenance Due Date Last Done Comments CT Colonography 1960 Colonoscopy 1960 FIT 1960 Sigmoidoscopy 1960 Alcohol/Substance Use Screening 1970 Dental X-Ray: Bitewings 03/10/2014 03/09/2013, 11/21 Dental X-Ray: Full Mouth 03/10/2016 03/09/2013, 07/01/2013 Dental Oral Exam 04/22/2016 10/21/2015, 10/2014, 03/09/2013, Additional history exists Dental Prophylaxis 04/07/2017 10/04/2016, 1 05/30/2015, 09/25/2015, Additional history exists FOBT 2024 2023 SDOH Screening 08/08/2024 08/09/2023 Depression Screening 03/19/2025 03/19/2024, 03/19/20 24 Mammogram 11/08/2025 11/08/2024, 10/15, 10/28/2022, Additional history exists Influenza Vaccine (#1) 2025 Postp oned from 01/14/2025 (Patient Refused) Colorectal Cancer Screening 2026 FIT DNA/Cologuard 2026 2023 COVID-19 Vaccine (3 - season) 2026 10/02/2020, 09/04/2020 Postponed from 01/14/2025 (Patient Refused) Pneumococcal Vaccine: 50+ Years (1 of 1 - PCV) 03/28/2026 Postponed from 2008 (Patient Refused) Tobacco Screening 03/28/2026 03/28/2025 Zoster Vaccines (1 of 2) 03/28/2026 Pos tponed from 2008 (Patient Refused) DTaP/Tdap/Td Vaccines (2 - Td or Tdap) [...] Procedure Name Priority Date/Time Associated Diagnosis Comments TSH W/REFLEX TO FT4 Routine 03/29/2025 9 :10 AM EST Annual physical exam LIPID PANEL, STANDARD Routine 03/29/2025 9:10 AM EST Annual physical exam COMPREHENSIVE METABOLIC PANEL Routine 03/29/2025 9:10 AM EST Annual physical exam CBC WITH AUTO DIFFERENTIAL Routine 03/29/2025 9:10 AM EST Annual physical exam CULTURE, URINE, ROUTINE Routine 03/15/2025 11:09 AM EDT BI MAMMOGRAM SCREENING TOMOSYNTHESIS BILATERAL Routine 11/08/2024 [...] Recently Relevant to Health Maintenance Results * TSH W/Reflex to FT4 (03/29/2025 9:10 AM EST) TSH reflex Free T4 1.49 0.32 - 4.0 uIU/mL [facility] Blood Venous blood specimen / Unknown 03/29/2025 9:10 AM EST 03/29/2025 10:15 AM EST us Jolly Randolph MD LAB BLOOD ORDERABLES Final Re sult [facility] [address] [place] [phone] * (ABNORMAL) CBC auto differential (03/29/2025 9:10 AM EST) White Blood Count 5.0 4.8 - 10.8 X10*3/uL [facility] Red Blood Count 4.08(L) 4.20 - 5.50 X10*6/uL [facility] Hemoglobin 12.7 12.0 - 16.0 g/dl [facility] Hematocrit 38.0 37.0 - 47.0 % [facility] Mean Corpuscular Volume 93.1 80.0 - 98.0 fL [facility] Mean Corpuscular Hemoglobin 31.1 27.0 - 33.0 pg [facility] Mean Corpuscular HGB Conc 33.4 31.0 - 35.0 g/dl [facility] Red Cell Distribution Width 12.4 11.0 - 16.0 % [facility] Platelet Count 182 160 - 400 X10*3/uL [facility] Mean Platelet Volume 12.6(H) 9.4 - 12.3 fL [facility] Neutrophils Percent Auto 49.7 45 - 73 % [facility] Imm Gran Pct Auto 0.4 0.0 - 0.4 % [facility] Lymphocytes Percent Auto 29.7 20 - 40 % [facility] Monocytes Percent Auto 7.4 2 - 11 % [facility] Eosinophils Percent Auto 11.6(H) 0 - 4 % [facility] Basophils Percent Auto 1.2 0 - 2 % [facility] NRBC Pct Auto 0.0 0.0 - 0.2 /100WBC [facility] Neutrophils Absolute Auto 2.5 2.0 - 8.3 x10*3/uL [facility] Imm Gran Abs Auto 0.02 0.00 - 0.03 X10*3/uL [facility] Lymphocytes Absolute Auto 1.5 1.2 - 4.9 X10*3/uL [facility] Monocytes Absolute Auto 0.4 0.1 - 1.2 X10*3/uL [facility] Eosinophils Absolute Auto 0.6(H) 0.0 - 0.4 X10*3/uL [facility] Basophils Absolute Auto 0.1 0.0 - 0.2 X10*3/uL [facility] NRBC Abs Auto 0.000 0.0 - 0.012 X10*3/uL [facility] Blood Venous blood specimen / Unknown 03/29/2025 9:10 AM EST 03/29/2025 10:21 AM EST us Jolly Randolph MD LAB BLOOD ORDERABLES Final Re sult Performing Organization Address [facility] Co de Phone Number [facility] [address] [place] [address] [phone] * (ABNORMAL) Lipid Panel, Standard (03/29/2025 9:10 AM EST) Triglycerides 64 <150 mg/dL [facility] Comment:Desirable Triglyceri de: less than 150 mg/dLBorderline High Triglyceride 150-199 mg/dLHigh Triglyceride: 200-499 mg/dLVery High Triglyceride: greater than or equal to 5OO mg/dL Cholesterol 189 <200 mg/dL [facility] Comment:Desirable Cholestero l: less than 200 mg/dLBorderline High Cholesterol: 200-239 mg/dLHigh Cholesterol: greater than 239 mg/dL LDL Cholesterol Calculated 120(H) <100 mg/dL [facility] Comment:Desirable LDL: less than 100 mg/dLNear Optimal/Above Optimal LDL: 110- 129 mg/dLBorderline High LDL: 130-159 mg/dLHigh LDL: 160-189 mg/dLVery High LDL: greater than or equal to 190 mg/dL HDL Cholesterol 57 >40 mg/dL [facility] Comment:Desirable HDL: great er than 40 mg/dL Note: This HDL assay may give artificially low results in patients with liver disease. Blood Venous blood specimen / Unknown 03/29/2025 9:10 AM EST 03/29/2025 10:15 AM EST us Jolly Randolph MD LAB BLOOD ORDERABLES Final Re sult Performing Organization Address [facility]/ZIP Co de Phone Number [facility] [address] [place] [address] [phone] * (ABNORMAL) Comprehensive Metabolic Panel (03/29/2025 9:10 AM EST) Sodium 142 135 - 145 mmol/L [facility] Potassium 3.9 3.3 - 5.1 mmol/L [facility] Chloride 108 96 - 108 mmol/L [facility] Carbon Dioxide 26 22 - 29 mmol/L [facility] Anion Gap 12 12 - 20 [facility] Urea Nitrogen (BUN) 21(H) 9 - 16 mg/dL [facility] Creatinine, Serum 0.76 0.5 - 1.4 mg/dL [facility] Estimated Glomerular Filt Rate >60 [facility] Comment:Chronic Kidney Disea se: Estimated GFR < 60 mL/min/1.99i4Zklaxd Kidney Disease: Estimated GFR < 15 mL/min/1.73m2 Glucose 93 60 - 115 mg/dL [facility] Calcium 9.2 8.4 - 10.2 mg/dL [facility] Bilirubin, Total 0.2 0.0 - 1.0 mg/dL [facility] Aspartate Amino Transferase 22 5 - 31 U/L [facility] Alanine Aminotransferase 17 0 - 31 U/L [facility] Total Protein 7.2 6.5 - 8.0 g/dL [facility] Albumin Level 4.4 3.5 - 5.0 g/dL [facility] Alkaline Phosphatase 75 39 - 117 U/L [facility] Blood Venous blood specimen / Unknown 03/29/2025 9:10 AM EST 03/29/2025 10:15 AM EST us Jolly Randolph MD LAB BLOOD ORDERABLES Final Re sult Performing Organization Address [facility]/State/[facility] Co de Phone Number [facility] [address] [place] [phone] * Culture, Urine, Routine (03/15/2025 11:09 AM EDT) Urine Urine specimen obtained by clean catch procedure / Unknown 03/15/2025 11:09 AM EDT 03/15/2025 1:39 PM EDT Comment:UACC Narrative [facility] - 03/16/2025 11:40 AM EDT Urine Culture Report Result Urine Culture < 10,000 cfu/ml Specimen Source: Urine clean catch us Generic External Data Provider LAB MICROBIOLOGY - GENERAL ORDERABLES Final Result [facility] [address] [place] [phone] * BI Mammogram Screening Tomosynthesis Bilateral (11/08/2024 10:35 AM EDT) Anatomical Region Laterality Modality Breast Bilateral Mammography 11/08/2024 10:3 5 AM EDT Narrative 11/24/2024 4:06 PM EDT [facility] [address] [place], [place] [address] Mammography Report Signed Patient: Dilcia Evans MR#: [id number] : 1960 Acct:[id number] Age/Sex: 64 / F ADM Date: 11/08/24 Loc: HO.MAMMO Attending Dr: Jolly Randolph MD Ordering Physician: Jolly Randolph MD Results: 1Nega tive Date of Service: 11/08/24 Follow Up: 1 Year From Orig ina Mammogram Procedure(s): MM tomosynthesis screening BI Accession Number(s): [id number] cc: Jolly Randolph MD EXAMINATION: MM SCREENING [...] Dimple Alvarado DO 11/24/2024 04:03 PM EDT Dictated By: Dimple Alvarado DO Signed By: <Electronically signed by Dimple Alvarado DO in OV> 11/24/24 1603 DD/ 1035 TD/TT: 11/08/24 1055 Gas Tender: Procedure Note Donotpedrointerpreter, Image - [facility] [address] [place] [address] Mammography Report Signed Patient: Tim Evans#: [id number] : [id number]:[id number] Age/Sex: 64 / FADM Date: 11/08/24 Loc: HO.MAMMO Attending Dr: Jolly Randolph MD Ordering Physician: Jolly Randolph MDResults: 1Nega tive Date of Service: 11/08/24Follow Up: 1 Year From Orig inal Mammogram Procedure(s): MM tomosynthesis screening BI Accession Number(s): [id number] cc: Jolly Randolph MD EXAMINATION: MM SCREENING [...] Dimple Alvarado DO 11/24/2024 04:03 PM EDT Dictated By: Dimple Alvarado DO Signed By: <Electronically signed by Dimple Alvarado DO in OV> 11/24/24 1603 DD/ 1035 TD/TT: 11/08/24 1055 Gas Tender: Jolly Randolph MD [facility] [place] PROCEDURES Edited Resu lt - Final * Cologuard?? colon cancer screening (2023 2:13 PM EDT) Cologuard Result Negative Negative 03/07/20 11:07 AM EDT [facility] (CLIA #:[id number]) Comment: NEGATIVE TEST RESULT. A negative Cologuard [...] screened with both Cologuard and colonoscopy. (Conchis Abernathy et al, N Engl J Med 2014;370(14):8349-6566) The normal value (reference range) for this assay is negative. COLOGUARD RE-SCREENING RECOMMENDATION: Periodic colorectal cancer screening is an important part of preventive healthcare for asymptomatic individuals at average risk for colorectal cancer. Following a negative Cologuard result, the [place] [employer] Society and U.S. Multi-Society Task Force screening guidelines recommend a Cologuard re-screening interval of 3 years. References: [place] [employer] Guideline for Colorectal Cancer Screening: https://www.cancer.org/cancer/stxux-ydvgxt-lnkcve/enlufjoft-afylqgzpr-iygzqvo/ac s-rec ommendations.html.; Junior DK, Wayne CR, Gabbi LaytonK, Colorectal Cancer Screening: Recommendations for Physicians and Patients from the U.S. Multi-Society Task Force on Colorectal Cancer Screening , Am J Gastroenterology 2017; 112:6444-7734. TEST DESCRIPTION: Composite algorithmic analysis of stool [...] screened with both Cologuard and colonoscopy. (Conchis Abernathy et al, N Engl J Med 2014;370(14):6881-1260.) Cologuard may produce a false negative or false positive result (no colorectal cancer or precancerous polyp present at colonoscopy follow up). A negative Cologuard test result does not guarantee the absence of CRC or advanced adenoma (pre-cancer). The current Cologuard screening interval is every 3 years. ([place] [employer] Society and U.S. Multi-Society Task Force). Cologuard performance data in a 10,000 patient pivotal study using colonoscopy as the reference method can be accessed at the following location: www.[employer]/results. Additional description of the Cologuard test process, warnings and precautions can be found at www.[employer]afe[employer]SpringLoaded Technologyrd.com. Stool specimen (specimen) 2023 2:13 PM EDT 03/02/2023 8:03 PM EDT us Jolly Randolph MD LAB MOLECULAR DIAGNOSTICS ORD ERABLES Final Result [facility] (CLIA #:[id number]) [place] [address], * Hepatitis C Ab (02/16/2023 8:56 AM EDT) Hepatitis C Antibody Nonreactive Nonreactive [facility] Comment:Antibodies to HCV no t detected; does not exclude early acuteHCV infection. Blood 02/16/2023 8:56 AM EDT 02/16/2023 2:10 PM EDT us Jolly Randolph MD LAB BLOOD ORDERABLES Final Re sult [facility] [address] [place] [address] [phone] from Last 3 Months or Most Recently Relevant to Health Maintenance Insurance [facility] STANDARD DENTAL-[facility] MEDICAID STAND ADULT * Guarantor: Dilcia Evans Account Type Relation to Patient Date of Phone Billing Address Personal/Family Self [address] [place] [address] Care Teams Secretary Administrative Assistant Relationship Specialty Start Date End Date Jolly Randolph MD [address] [place] [phone] PCP - General Family Medicine 02/15/23
--- OUTSIDE RECORDS SUMMARY | 2025-04-17 13:35 | XMS_ITS | Encounter Summary ---
Author Organization [employer] Address [address] [facility] [address] [facility] [address] [place] [address] Care Team Providers Care Pressure Tester Operator Name Role Phone Jolly Randolph MD Primary Care Provider [phone] Reason for Visit * Reason Onset Date Comments Change 04/16/2024 Encounter Details Date Type Department Care Team (Late st Contact Info) Description 04/16/2024 Telephone [facility] MED[facility] [address] [place], [place] [phone] Jolly Randolph MD [address] [place] [address] Change Social History Tobacco Use Types Packs/Day [...] any questions you can't contact pt at [phone] documented in this encounter Plan of Treatment Not on file documented as of this encounter Visit Diagnoses Not on filedocumented in this encounter Additional Health Concerns Assessment Noted Time PHQ-9 Depression Total Score: 0 03/19/20 24 10:21 AM EST documented as of this encounter Care Teams Pressure Tester Operator Relationship Specialty Start Date End Date Jolly Randolph MD [address] [place] [phone] PCP - General Family Medicine 02/15/23 documented as of this encounter
--- OUTSIDE RECORDS SUMMARY | 2025-04-17 13:35 | XMS_ITS | Encounter Summary ---
Author Organization [employer] Address [address] [facility] [address] [place] [address] Care Team Providers Care Senior Administrative Assistant Name Role Phone Jolly Randolph MD Primary Care Provider [phone] Reason for Visit * Reason Onset Date Comments Nurse Triage 04/16/2025 Encounter Details Date Type Department Care Team ([facility] st Contact Info) Description 04/16/2025 Telephone [facility] [address] [place] [address] Jolly Randolph MD [address] [place] [address] Nurse Triage Social History Tobacco Use Types Packs/Day Years [...] encounter Miscellaneous Notes * Telephone Encounter - Charu Ortiz RN - 04/17/2025 9:38 AM EST Called pt regarding message from PCP, spoke to pt through [employer]. Advised to come into the clinic for urine testing and advised can come whenever convenient. Pt understands and agrees with plan. Plan going forward will depend on the results. * Telephone Encounter - Jolly Randolph MD - 04/17/2025 9:08 AM EST We will check urine testing to r/o persistent microhematuria, if present at this point will refer to urology. Please call for patient to have her urine checked, ordered placed. Thanks! * Telephone Encounter - Glory Fried RN - 04/16/2025 12:31 PM EST TC placed to patient [phone] in regards to below message. Patient reports she experienced blood in her urine (small amount) on . Patient reports this is the second time it has happened and her PCP advised her if it happens again to call and advise PCP. Patient denies any UTI s/s, denies blood in urine currently, denies fevers. Patient denies consuming beets or rhubarb on and reports she had grape soda. Patient does not want to see an alternative provider. Patient advised PCP does not have any upcoming appt's however RN would send message to PCP to review if schedule should be overbooked, if PCP would like to order any labs or if PCP would like to refer patient to urologist. Patient was not aware of PCP's plan and states she was advised to just call and report if hematuria occurs again. Please review and advise [facility] RN's of POC. Thank you! Protocol Used: Urine - Blood In (Adult) Protocol-Based Disposition: See in Office or Video Visit Today Positive Triage Question: * Patient wants to be seen * All higher-acuity triage questions were negative. * Telephone Encounter - Frederic Solorio - 04/16/2025 11:33 AM EST Symptom: Urine Symptoms Outcome: Schedule a same-day appointment or talk to a nurse or provider today Reason: Caller denied all higher acuity questions The caller accepted this outcome. Contact pt at [phone] (syriac) documented in this encounter Plan of Treatment Scheduled Orders Name Type Priority Associated Diagnoses Orde r Schedule Urinalysis with reflex microscopic Lab Routine Hematuria, unspecified type Expected: 04/17/2025, Expires: 04/17/2026 documented as of this encounter Visit Diagnoses Diagnosis Hematuria, unspecified type- Primary documented in this encounter Additional Health Concerns Assessment Noted Time PHQ-9 Depression Total Score: 0 03/19/20 24 10:21 AM EST documented as of this encounter Care Teams Senior Administrative Assistant Relationship Specialty Start Date End Date Jolly Randolph MD [address] [place] [phone] PCP - General Family Medicine 02/15/23 documented as of this encounter
--- OUTSIDE RECORDS SUMMARY | 2025-04-17 13:35 | XMS_ITS | Encounter Summary ---
Author Organization [employer] Address [address] [facility] [address] [place] [address] Care Team Providers Care Manager Poker Name Role Phone Jolly Randolph MD Primary Care Provider [phone] Reason for Visit * Reason Onset Date Comments Appointment Request 04/16/2024 Encounter Details Date Type Department Care Team ([facility] Contact Info) Description 04/16/2024 Telephone [facility] [address] [place] [address] Jolly Randolph MD [address] [place] [address] Appointment Request Social History Tobacco Use Types [...] any questions you can't contact pt at [phone] documented in this encounter Plan of Treatment Not on file documented as of this encounter Visit Diagnoses Not on filedocumented in this encounter Additional Health Concerns Assessment Noted Time PHQ-9 Depression Total Score: 0 03/19/20 10:21 AM EST documented as of this encounter Care Teams Manager Poker Relationship Specialty Start Date End Date Jolly Randolph MD [address] [place] [address] PCP - General Family Medicine 02/15/23 documented as of this encounter
[2025-04-17 14:15] LABS: Appearance Urine Clear; Glucose Urine UA Negative (Negative); PH 7.0 (5.0-9.0); Specific Gravity - Urine 1.015 (1.005-1.025); UMIC TRIGGER UACC YES
== END 2025-04-17 11:18 | disposition home or self-care (01) ==
LOC: HO.CHCLDS 11:17
PROVIDERS: PCP Family Medicine; Visit Provider Family Medicine
DX: R31.9 Hematuria, unspecified (principal)
CPT/HCPCS: 81001; 81003

== ENCOUNTER 2025-04-25 08:02 | Outpatient (AMB) | payer MEDICAID, SELFPAY ==
--- NOTE | 2025-04-25 08:07 | A.OFFVIS_ITS ---
Intake Visit Reasons: hematuria Intake Note: Patient is present for HEMATURIA Urology Medication:NONE Antibiotic Allergy:NONE Blood Thinner:NONE TODAY'S PVR:0ML'S Geriatric Nurse Assistant Required: Yes Geriatric Nurse Assistant Services: Geriatric Nurse Assistant Present Geriatric Nurse Assistant Name: Thor [id number] Allergies aspirin Adverse Reaction (Intermediate, Verified 04/25/25 08:41) Eye Swelling ibuprofen (From [facility]) Adverse Reaction (Intermediate, Verified 04/25/25 08:41) Eye Swelling Medication List - Last Reconciled 04/25/25 by LAMINE Odonnell No Known Home Meds HPI Comments Details: Dilcia is pleasant 65-year-old Dive[place]-speaking female patient of Dr. Randolph. She presents to the office today as a new patient for gross hematuria. In discussion with the patient today she reports sometime in February she experienced gross hematuria at which time she sought out services through walk- in clinic through [facility]. She reports she was given an antibiotic for potential urinary tract infection and gross hematuria subsided shortly after. In review of patient's chart it appears urine culture 03/09 urine culture: < 10,000 cfu/ml. She denies any previous history of recurrent urinary tract infections. She denies any history of workplace chemical exposure and or smoking history. She currently denies any bothersome urinary issues. In office urinalysis results reviewed with the patient today no microscopic hematuria noted. We did discussed at length potential causes of gross hematu jose. I discussed reasons for blood in the urine may include but are not limited to kidney stones, cancer in the urinary tract, kidney stone disease or inflammatory conditions of the urinary tract. I have discussed workup to include cystoscopy evaluation. When asked she denies urinary urgency, urinary frequency, incontinence, nocturia, hematuria, dysuria, foul smelling urine, changes to urinary stream, flank pain, fever, and or chills. She is happy with her current voiding parameters. All questions were answered. She otherwise offers no other issues or concerns at this time. Review of Systems Const All systems reviewed & are unremarkable except as noted in HPI and below Physical Exam Const General: cooperative, healthy appearing, comfortable, no acute distress, well developed, alert and awake Orientation/consciousness: patient oriented x3 Limitations: language barrier HEENT Head: Yes normal to inspection, Yes normocephalic and Yes atraumatic Ears: hearing grossly normal bilaterally Eyes General: appearance normal, both eyes and all related structures Neck Neck: Yes normal visual inspection and Yes trachea midline Chest Chest palpation & inspection: normal inspection of the chest Resp Effort & Inspection: normal respiratory effort and able to speak in complete sentences Cardio Rate: regular rate GI Inspection: Yes normal to inspection General: Yes no CVA tenderness Back/Spine/Pelvis Back: no CVA tenderness Skin General skin exam: no rashes or lesions noted Neuro General: patient oriented x3 Extrem General: Yes normal to inspection Psych Appearance: grossly normal and well kempt Mental Status: mental status grossly normal Speech and movement: Normal speech and movement present and Clear speech present Affect: normal affect Attitude: cooperative Thought process: Normal thought process present Thought content: Normal thought content present Insight: Fair insight present (Psych) Judgement: Fair judgement present (Psych) Office Procedures Post Void Residual Post Residual Void Post Void Residual (PVR): 0 [id number]-[id number] Void Residual by ultrasound Results AMB Urinalysis, Automated UA Leukoctes 0 Jessy/uL Last Edit by JODEE Camp on 04/25/25 08:22 UA Nitrite Negative Last Edit by JODEE Camp on 04/25/25 08:22 UA Urobilinogen 0.2 mg/dL Last Edit by JODEE Camp on 04/25/25 08:2 2 UA Protein 0 mg/dL Last Edit by JODEE Camp on 04/25/25 08:22 UA pH 6.0 Last Edit by JODEE Camp on 04/25/25 08:22 UA Blood 0 Martin/uL Last Edit by JODEE Camp on 04/25/25 08:22 UA Specific [employer] 1.020 Last Edit by JODEE Camp on 04/25/25 08: 22 UA Ketone Negative Last Edit by JODEE Camp on 04/25/25 08:22 UA Bilirubin 0 mg/dL Last Edit by JODEE Camp on 04/25/25 08:22 UA Glucose 0 mg/dL Last Edit by JODEE Camp on 04/25/25 08:22 Results Reviewed Results Reviewed: Laboratory Last Values Urine pH (Auto) 6.0 04/25/25 08:21 Specific [employer] (Auto) 1.020 04/25/25 08:21 Urine Protein (Auto) 0 mg/dL 04/25/25 08:21 Glucose (UA)(Auto) 0 mg/dL 04/25/25 08:21 Urine Ketones (Auto) Negative 04/25/25 08:21 Urine Blood (Auto) 0 Martin/uL 04/25/25 08:21 Urine Nitrite (Auto) Negative 04/25/25 08:21 Urine Bilirubin (Auto) 0 mg/dL 04/25/25 08:21 Urine Urobilinogen (Auto) 0.2 mg/dL 04/25/25 08:21 Leukocyte Esterase (Auto) 0 Jessy/uL 04/25/25 08:21 Assessment & Plan Assessment & Plan (1) Gross hematuria: Code(s): R31.0 - Gross hematuria Category: Medical Plan In office urinalysis results reviewed with the patient today; as noted above; will send for urine cytology. PVR 0 mL We did discussed potential causes of gross hematuria as well as further interventions to include CT urogram as well as in office cystoscopy. All questions were answered. She currently denies any bothersome urinary issues or concerns. She reports be happy with current voiding parameters. Will obtain CT urogram for further assessment evaluation. BUN and creatinine ordered for imaging. She would like to think about in office cystoscopy; information provided Follow-up in 1-3 months with imaging to be completed prior; or sooner with any issues, concerns, and or questions. Orders: Orders AMB Urinalysis Automated Today Z13.9 - Encounter for screening, unspecified CT urogram Today R31.0 - Gross hematuria Blood Urea Nitrogen Today R31.0 - Gross hematuria Urine Cytology Today R31.29 - Other microscopic hematuria Creatinine Today R31.0 - Gross hematuria Patient Instructions: The patient had an opportunity to ask questions regarding the treatment plan. All questions were answered. Physical exam, labs, and imaging were discussed and reviewed in detail. As well as risks, benefits, and discussion of treatment choices. No major barriers to understanding were identified. The patient expressed understanding and agreement with the above treatment plan. The patient was made aware they should contact our office by phone for worsening of their current condition, the appearance of new symptoms, or with any questions or concerns. Compliance is encouraged with any medications and follow up testing that is ordered. It is a privilege to be allowed the opportunity to participate in? your urological care.? Again, if you have any questions or concerns If you have any questions or concerns please do not hesitate to contact me. The office is [phone]. This note is constructed using voice recognition software. While every effort has been made to ensure accuracy client experience administrator errors may have been included. Yours sincerely, KRYSTA Odonnell-CHAGO Coding Level of Care Code New Pt Level 3 (65057) Diagnoses Gross hematuria R31.0 CPT Codes Post Residual Void - PVR CPT Code: 17174-Lalw Void Residual by ultrasound ([id number])
== END 2025-04-25 08:52 | disposition home or self-care (01) ==
LOC: HO.HUSH 08:03
PROVIDERS: PCP Family Medicine; Visit Provider Nurse Practitioner Family
DX: Z13.9 Encounter for screening, unspecified (principal)

== ENCOUNTER 2025-04-25 08:02 | Outpatient (REF) | payer MEDICAID, SELFPAY | END 2025-04-25 08:03 | disposition home or self-care (01) | LOC: HO.LAB 08:02 | PROVIDERS: PCP Family Medicine; Visit Provider Nurse Practitioner Family | DX: R31.0 Gross hematuria (principal) | CPT/HCPCS: 51798; 81003; 88112; 99212 ==